=== PATIENT | female | born 1985 | race Two or more races ===

== ENCOUNTER 2018-08-12 23:43 | Emergency (ER) | payer OTHER ==
[~2018-08-12] VITALS: Ht 160 cm; Wt 59.4 kg
[~2018-08-12 23:43] MED LIST: ZYRTEC5 MG
[2018-08-13] MEDS ORDERED: LEVSIN/SL0.125 MG SL (05:43)
== END 2018-08-13 05:53 | disposition home or self-care (01) ==
LOC: ER 23:43
DX: K21.9 Gastro-esophageal reflux disease without esophagitis (principal)

== ENCOUNTER 2018-08-19 21:42 | Emergency (ER) | payer OTHER ==
[~2018-08-19] VITALS: Ht 160 cm; Wt 60.3 kg
[~2018-08-19 21:42] MED LIST changes: +LEVSIN/SL0.125 MG SL
[2018-08-19] MEDS ORDERED: PRILOSEC10 MG (22:00)
[2018-08-19] MEDS ORDERED: PEPCID20 MG (22:00)
== END 2018-08-19 23:38 | disposition home or self-care (01) ==
LOC: ER 21:42
DX: R51 Headache (principal); F41.0 Panic disorder [episodic paroxysmal anxiety]

== ENCOUNTER 2018-08-25 00:38 | Emergency (ER) | payer OTHER ==
[~2018-08-25] VITALS: Ht 160 cm; Wt 60.3 kg
[~2018-08-25 00:38] MED LIST changes: +PEPCID20 MG; +PRILOSEC10 MG
== END 2018-08-25 07:31 | disposition home or self-care (01) ==
LOC: ER 00:38
DX: R05 Cough (principal); K21.9 Gastro-esophageal reflux disease without esophagitis

== ENCOUNTER 2018-10-20 04:35 | Emergency (ER) | payer OTHER ==
[~2018-10-20] VITALS: Ht 160 cm; Wt 59.0 kg
== END 2018-10-20 08:34 | disposition home or self-care (01) ==
LOC: ER 04:35
DX: R07.89 Other chest pain (principal); F06.4 Anxiety disorder due to known physiological condition

== ENCOUNTER → 2018-10-20 | Emergency (ER) | payer OTHER ==
[~2018-10-20] VITALS: Ht 160 cm; Wt 59.0 kg
[~2018-10-20] MED LIST changes: +MAALOX MAXIMUM355 ML PO; +OMEPRAZOLE40 MG PO; +PEPCID AC20 MG PO
== END | disposition home or self-care (01) ==
LOC: ER 01:57
DX: K21.9 Gastro-esophageal reflux disease without esophagitis (principal)

== ENCOUNTER → 2019-02-01 | Emergency (ER) | payer OTHER ==
[~2019-02-01] VITALS: Ht 160 cm; Wt 54.9 kg
== END | disposition home or self-care (01) ==
LOC: ER 22:25
DX: R07.89 Other chest pain (principal); M94.0 Chondrocostal junction syndrome [Tietze]